=== PATIENT | female | born 1995 | race Caucasian/White ===

== ENCOUNTER 2020-11-14 14:56 | Outpatient (REF) | payer OTHER, SELFPAY | END 2020-11-14 14:57 | disposition home or self-care (01) | LOC: HO.LAB 14:56 | PROVIDERS: Visit Provider Internal Medicine | DX: Z20.822 Contact with and (suspected) exposure to COVID-19 (principal) | CPT/HCPCS: C9803; U0003; U0005 ==

== ENCOUNTER 2020-12-02 12:48 | Emergency (ER) | payer OTHER, SELFPAY ==
--- NOTE | ~2020-12-02 | CT_ITS ---
EXAMINATION: CT HEAD WITHOUT CONTRAST CLINICAL INFORMATION: Migraine, blurred vision COMPARISON: None TECHNIQUE: Contiguous axial imaging was performed from the skull base to vertex without intravenous administration of contrast. This CT examination was performed using dose optimization techniques as appropriate, variously including the following: *Automated exposure control *Adjustment of mA and/or kV according to patient size (this includes techniques or standardized protocols for targeted exams where dose is matched to indication/reason for exam; i.e. extremities or head) *Use of iterative reconstruction technique DLP: 553 mGy-cm FINDINGS: There is no evidence of acute intracranial hemorrhage or territorial infarction. No abnormal mass effect or midline shift is seen. Sarmiento to white matter differentiation is well preserved. No extra-axial fluid collections are identified. The ventricles are normal in size. There is no abnormal attenuation within the brain parenchyma. The osseous structures and soft tissues are normal. The mastoid air cells and visualized portions of the paranasal sinuses are well aerated. CT/CT head/brain wo con IMPRESSION: No acute intracranial pathology.
[2020-12-02 13:36] VITALS: BP 130/85; PULSE 84; RESP 16; TEMP 36.6; O2SAT 99; BMI 25.8
--- NOTE | 2020-12-02 17:37 | ED_ITS ---
HPI - Headache General Chief Complaint: Headache Stated Complaint: headache Time Seen by Provider: 12/02/20 17:37 Source: patient Mode of arrival: ambulatory Limitations: no limitations History of Present Illness HPI Narrative: 25-year-old female pmhx migranes presents to emergency department for migraine headaches X3 weeks. She states she typically gets migraines, however, the usually go away after taking Tylenol and/or Excedrin. She states that these medications have not been helping her. She also reports photophobia, sensitivity to smells, and blurred vision. She states she has had a headache every day for the past 3 weeks, they vary in intensity, and duration. She states that the headache is localized to the left frontal aspect of her head, and left eye. She has a past family history of brain cyst/tumors (mom and sister). At this time she states she has a very mild headache, no nausea, and no blurred vision. She was also concerned about a nosebleed that she had yesterday, she states blood was coming out of her left nares. She states she told her primary care provider about these symptoms, and they wanted her evaluated, and could not see her for another week. Denies chest pain, shortness of breath, vomiting, abdominal pain, weakness, dizziness. Denies recent trauma. MD elicited complaint: migraine Onset (ago): week(s) (3) Severity: moderate Quality & Timing: sharp Exacerbating factors: light and noise Relieving factors: nothing Associated symptoms: nausea Treatments prior to arrival: other (Tylenol and Excedrin.) Related Data Previous Rx's Medication Instructions Recorded ondansetron 4 mg disintegrating 4 mg PO Q8-12H #10 tab 12/02/20 tablet sumatriptan succinate 50 mg tablet 50 mg PO Q2H PRN #10 tab 12/02/20 (Imitrex) Allergies Allergy/AdvReac Type Severity Reaction Status Date / Time No Known Allergies Allergy Unverified 11/02/19 19:29 [No Known Allergies*] Review of Systems Review of Systems: Constitutional : No Weight loss, No Fever, No Chills, No Night Sweats, No F atigue, No Malaise ENT/Mouth : No Hearing loss, No Ear Pain, No Nasal Congestion, No Sinus Pain, No Hoarseness, No sore throat, No Rhinorrhea, No Swallowing Difficulty Eyes: No Eye Pain, No Swelling, No Redness, No Foreign Body, No Discharge, No Vision Changes Cardiovascular : No Chest Pain, No SOB, No Dyspnea on Exertion, No Orthopnea, No Edema, No Palpitations Respiratory : No Cough, No Sputum, No Wheezing, No Smoke Exposure, No Dyspnea Gastrointestinal : No Nausea, No Vomiting, No Diarrhea, No Constipation, No abdominal Pain, No Hematochezia, No Melena Genitourinary : no irregular bleeding, No Dysuria, No Urinary Frequency, No Hematuria, No Urinary Incontinence, No Urgency, No Flank Pain, No Urinary Flow Changes, No Hesitancy Musculoskeletal : No joint pain, No Myalgias, No Joint Swelling Skin : No Skin Lesions, No rash Neuro : No Weakness, No Numbness, No Paresthesias, No Loss of Consciousness, No Dizziness, + Headache Neurologic: Reports Abnormal speech present [facility] Past Medical History Attestation statement: The following information was validated with the patient. Source: old records reviewed and nursing notes reviewed Medical History Asthma Social History Social History Advance Directives: No Advance Directives Information Provided: No Patient : No Physical Exam Vital Signs: Vital Signs: Last Vital Signs Temp 97.9 F 12/02/20 18:50 Pulse 92 12/02/20 18:50 Resp 18 12/02/20 18:50 BP 135/80 12/02/20 18:50 Pulse Ox 94 12/02/20 18:50 Body Mass Index 25.8 Const: General: cooperative Nutritional Appearance: average body habitus Orientation/consciousness: oriented to person, oriented to place and oriented to time Limitations: no limitations HENMT: Head: Yes normal to inspection Mouth: Normal oral and palatal mucosa present Eyes: General: appearance normal, both eyes and all related structures Pupils: Equal, round and reactive pupils present EOM: EOMs intact bilaterally Neck: Neck: Yes normal visual inspection and Yes full ROM Thyroid: Thyroid normal Lymphatic: no lymphadenopathy noted Resp: Effort & Inspection: normal respiratory effort and able to speak in complete sentences Auscultation: clear to auscultation bilaterally Cardio: Palpation: normal PMI Rate: regular rate Rhythm: regular rhythm and abnormal rhythm Heart sounds: S1 normal heart sound present and S2 normal heart sound present GI: Inspection: Yes normal to inspection Palpation (GI): Soft to palpation and nontender : General: Yes no CVA tenderness Back/Spine/Pelvis: Back: no CVA tenderness Neuro: General: oriented to person, oriented to place and oriented to time Cranial nerves: Yes CN's II-XII intact bilaterally and Yes Equal, round and reactive pupils present Cognition (Neuro): normal cognition Speech: Abnormal speech present Gait exam (Neuro): Normal gait present Motor exam (neuro): 5/5 motor strength present throughout Sensory Exam: Normal double simultaneous stimulation for sensation Coordination: [id number] test normal, [id number] test normal and tandem gait normal Extrem: General: Yes normal to inspection, Yes full ROM and Yes no pedal edema Psych: Mental Status: mental status grossly normal Course Course Course Narrative: 25-year-old female past medical history of migraines presents the emergency department with 3 weeks of intermittent left-sided migraines, not relieved by Tylenol or Excedrin. She also reports 1 episode of epistaxis , that was easily controlled with pressure. She mentioned migraines run in the family, and her both her sister, and mother have a history of cysts in their heads/tumors. Denies trauma Upon physical examination there are no abnormalities noted neurological exam. Normal finger to nose, normal tandem, gait normal strength upper and lower extremities, normal reflexes, no nystagmus, negative pronator drift. At this time, this is likely migraine headache. However other etiologies will be ruled out such as ICH, or intracerebral etiologies. Plan is to obtain a CT of the head and brain. She will be given Imitrex at this time. Reevaluation(s) Reevaluation #1: Patient is feeling better after Imitrex. CT of the head shows no acute findings. This is likely a migraine headache based off patient's history and physical exam findings. She still reports a bit of a headache, Imitrex will be given at this time. She will be discharged home on Imitrex, and Zofran for nausea. She should follow up with her primary care provider. She is safe for discharge home with prompt follow-up. Time: 19:51 MDM - Headache Lab Data Labs: Lab Results 12/02/20 Range/Units 18:45 Urine Test NEGATIVE (NEGATIVE) Imaging Data CT scan - head: Attestation: I personally reviewed and interpreted this imaging study as follows: Radiologist's impression: FINDINGS: There is no evidence of acute intracranial hemorrhage or territorial infarction. No abnormal mass effect or midline shift is seen. Sarmiento to white matter differentiation is well preserved. No extra-axial fluid collections are identified. The ventricles are normal in size. There is no abnormal attenuation within the brain parenchyma. The osseous structures and soft tissues are normal. The mastoid air cells and visualized portions of the paranasal sinuses are well aerated. ? CT/CT head/brain wo con IMPRESSION: No acute intracranial pathology. Discharge Plan Discharge Clinical Impression: Migraine, Nausea Patient Disposition: Home, Self-Care Instructions: Migraine Headache (ED) Additional Instructions: Follow-up with your primary care provider Take medications as prescribed Imitrex you can take as needed for migraines, Zofran can be taken if you have nausea. Drink plenty of fluid Return to the emergency department with new or worsening symptoms. Prescriptions: New sumatriptan succinate [Imitrex] 50 mg tablet 50 mg PO Q2H PRN (Reason: migraine headache) Qty: 10 RF: 0 ondansetron 4 mg tablet,disintegrating 4 mg PO Q8-12H Qty: 10 RF: 0 Stand Alone Forms: Work/School Release
[2020-12-02 18:50] VITALS: BP 135/80; PULSE 92; RESP 18; TEMP 36.6; O2SAT 94
[2020-12-02 18:57] LABS: UPreg QC Valid YES; Urine Pregnancy NEGATIVE (NEGATIVE)
[2020-12-02] MEDS: SUMAtriptan succinate 6 MG/0.5 ML VIAL SUBCUT (19:26)
[2020-12-02] MEDS: Butalb/Acetamin/Caff 50/325/40 TABLET 1 TAB PO (20:02)
[2020-12-02 20:09] VITALS: BP 125/90; PULSE 86; RESP 16; TEMP 36.7; O2SAT 96
== END 2020-12-02 20:12 | disposition home or self-care (01) ==
PROVIDERS: Emergency Provider Internal Medicine; PCP Internal Medicine Endocrinology, Diabetes & Metabolism
DX: G43.909 Migraine, unspecified, not intractable, without status migrainosus (principal); R11.0 Nausea; Z79.899 Other long term (current) drug therapy
CPT/HCPCS: 70450; 81025; 96372; 99284; J3030

== ENCOUNTER 2020-12-05 09:31 | Outpatient (REF) | payer OTHER, SELFPAY ==
[2020-12-05 10:45] LABS: COVID-19 Test Negative (Negative)
== END 2020-12-05 09:32 | disposition home or self-care (01) ==
LOC: HO.LAB 09:31
PROVIDERS: Visit Provider Internal Medicine
DX: Z20.822 Contact with and (suspected) exposure to COVID-19 (principal)
CPT/HCPCS: 36415; 87635; C9803